=== PATIENT | female | born 1975 | race Caucasian/White ===

== ENCOUNTER → 2017-10-25 | Outpatient (CLI) | payer BC ==
--- NOTE | 2017-10-25 12:45 | WOMENS IMAGING REPORT ---
EXAM DESCRIPTION: BILAT SCREENING MAMMO W/CAD COMPLETED DATE/TIME: 10/25/2017 8:52 am REASON FOR STUDY: SCREENING MAMMO Z12.31 ENCNTR SCREEN MAMMOGRAM FOR MALIGNANT NEOPLASM OF KAUR COMPARISON: Baseline study TECHNIQUE: Standard craniocaudal and mediolateral oblique views of each breast recorded using digita l acquisition. LIMITATIONS: None. FINDINGS: RIGHT BREAST MASSES: Low-density well-circumscribed mammographic nodules are present in the upper outer quadrant, likely breast parenchymal cysts. There is also probable intramammary lymph node in the upper outer q uadrant. These findings require further evaluation with cone compression CC and MLO orientation mamm ograms and 90 mediolateral view. If they persist then ultrasound be required for followup. CALCIFICATIONS: No new or suspicious calcifications. ARCHITECTURAL DISTORTION: None. DEVELOPING DENSITY: None. ASYMMETRY: None noted. OTHER: No other significant findings. LEFT BREAST MASSES: Low-density well-circumscribed mammographic nodules in the upper outer quadrant left breast, likely cysts or intramammary lymph nodes. These findings require further evaluation with cone compre ssion CC and MLO orientation mammograms and 90 mediolateral view. The persist then ultrasound would be required for followup. CALCIFICATIONS: No new or suspicious calcifications. ARCHITECTURAL DISTORTION: None. DEVELOPING DENSITY: None. ASYMMETRY: None noted. OTHER: No other significant findings. Read with the assistance of CAD. .[facility] - R2 Cenova Version 1.3 .[facility] - R2 Cenova Version 1.3 .[facility] Imaging - R2 Cenova Version 2.4 .[facility] [place] - R2 Cenova Version 2.4 .[facility] - R2 Senior Teller Version 9.2 IMPRESSION: Mammographic findings bilaterally which require further evaluation with diagnostic mammo graphy and ultrasound. BREAST DENSITY: c. The breasts are heterogeneously dense, which may obscure small masses. BIRAD: 0 Incomplete: Needs Additional Imaging Evaluation and/or prior Mammograms for Comparison. RECOMMENDATION: RECOMMENDED FOLLOW-UP: Bilateral diagnostic mammograms and bilateral breast ultrasou nd The patient will be contacted for additional imaging. COMMENT: The patient has been notified of the results by letter per SA requirements. Additional no tification policies are in place for contacting patient with suspicious or incomplete findings. Quality ID #[id number]: The [employer] recommends an annual screening mammogram for women aged 40 years or over. This facility utilizes a reminder system to ensure that all patients receive reminder letters, and/or direct phone calls for appointments. This includes reminders for routine scr eening mammograms, diagnostic mammograms, or other Breast Imaging Interventions when appropriate. Th is patient will be placed in the appropriate reminder system. The [employer] (ACR) has developed recommendations for screening MRI of the breast s in certain patient populations, to be used in conjunction with mammography. Breast MRI surveillanc e may be appropriate for women with more than 20% lifetime risk of developing breast cancer as deter mined by genetic testing, significant family history of the disease, or history of mantle radiation f or Hodgkins Disease. ACR Practice Guidelines 2008. TECHNICAL DOCUMENTATION: FINDING NUMBER: (1) ASSESSMENT: (1) JOB ID: [id number] [employer]- All Rights Reserved Reading location - IP/workstation name: [facility]
== END ==
LOC: WI 08:38
PROVIDERS: ATTEND Family Medicine
DX: Z12.31 Encounter for screening mammogram for malignant neoplasm of breast (principal)
CPT/HCPCS: 77067

== ENCOUNTER → 2017-11-05 | Outpatient (CLI) | payer BC ==
--- NOTE | 2017-11-05 16:02 | WOMENS IMAGING REPORT ---
EXAM DESCRIPTION: BILAT DIAGNOSTIC MAMMO W/CAD; U/S BREAST UNILATERAL, COMPL COMPLETED DATE/TIME: 11/05/2017 11:01 am; 11/05/2017 12:05 pm REASON FOR STUDY: RIGHT BREAST LUMP; BREAST MASS N63.11 UNSPECIFIED LUMP IN THE RIGHT BREAST, UPPER OUTER DEE DEE N63.21 UNSPECIFIED LUMP IN THE LEFT BREAST, UPPER OUTER QUAD COMPARISON: Baseline screening exam 10/25/2017 TECHNIQUE: Cone compression craniocaudal and mediolateral oblique views of each breast recorded usin g digital acquisition. Bilateral whole breast 90 mediolateral views. Bilateral whole breast ultrasound was performed. LIMITATIONS: None. FINDINGS: RIGHT BREAST MASSES: Multiple small well-circumscribed low-density nodules are present in the right breast lateral ly. CALCIFICATIONS: No new or suspicious calcifications. ARCHITECTURAL DISTORTION: None. DEVELOPING DENSITY: None. ASYMMETRY: None noted. OTHER: No other significant findings. LEFT BREAST MASSES: Multiple small well-circumscribed low-density nodules are present in the left breast upper ruelas lf. CALCIFICATIONS: No new or suspicious calcifications. ARCHITECTURAL DISTORTION: None. DEVELOPING DENSITY: None. ASYMMETRY: None noted. OTHER: No other significant finding. Read with the assistance of CAD: .[facility] - R2 Cenova Version 1.3 .[facility] Imaging - R2 Cenova Version 1.3 .[facility] Imaging - R2 Cenova Version 2.4 .[facility] - R2 Cenova Version 2.4 .[facility] - R2 Packaging Assembler Version 9.2 Bilateral breast ultrasound: On the right side, there are multiple hypoechoic solid nodules which are well-circumscribed, and have good acoustic through transmission likely benign fibroadenomas. These are as follows: Right breast 1 to 2 o'clock position 9 x 6 mm Right breast 7 to 8 o'clock position 9 x 7 mm Right breast 9 o'clock position 7 x 5 mm Right breast 9 o'clock position 10 mm in diameter Right breast 9 o'clock position 5 mm in diameter On the left side, there are multiple hypoechoic solid nodules which are well-circumscribed and have g ood acoustic through transmission likely benign fibroadenomas. These are as follows: Left breast 12 o'clock position 7 x 4 mm Left breast 1 to 2 o'clock position 17 x 12 mm Left breast 9 o'clock position 10 x 7 mm Left breast 10 to 11 o'clock position 4 mm IMPRESSION: Multiple bilateral benign-appearing breast nodules with sonographic appearance of fibroa denomas. No mammographic or sonographic evidence for malignancy. BREAST DENSITY: c. The breasts are heterogeneously dense, which may obscure small masses. BIRAD: 2 Benign findings. RECOMMENDATION: RECOMMENDED FOLLOW UP: Please continue yearly bilateral screening mammography in Nov. Because of heterogeneously dense tissue please consider bilateral screening tomosynthesis. SPECIFIC INTERVENTION/IMAGING/CONSULTATION RECOMMENDED:No additional intervention/ imaging/consultati on needed at this time. COMMUNICATION:Patient notified by letter COMMENT: The patient has been notified of the results by letter per SA requirements. Additional no tification policies are in place for contacting patient with suspicious or incomplete findings. Quality ID #225: The [employer] recommends an annual screening mammogram for women aged 40 years or over. This facility utilizes a reminder system to ensure that all patients receive reminder letters, and/or direct phone calls for appointments. This includes reminders for routine scr eening mammograms, diagnostic mammograms, or other Breast Imaging Interventions when appropriate. Th is patient will be placed in the appropriate reminder system. The [employer] (ACR) has developed recommendations for screening MRI of the breast s in certain patient populations, to be used in conjunction with mammography. Breast MRI surveillanc e may be appropriate for women with more than 20% lifetime risk of developing breast cancer as deter mined by genetic testing, significant family history of the disease, or history of mantle radiation f or Hodgkins Disease. ACR Practice Guidelines 2008. TECHNICAL DOCUMENTATION: FINDING NUMBER: (1) ASSESSMENT: (1) JOB ID: [id number] [employer]- All Rights Reserved Reading location - IP/workstation name: [facility]
--- NOTE | 2017-11-05 16:02 | WOMENS IMAGING REPORT ---
EXAM DESCRIPTION: BILAT DIAGNOSTIC MAMMO W/CAD; U/S BREAST UNILATERAL, COMPL COMPLETED DATE/TIME: 11/05/2017 11:01 am; 11/05/2017 12:05 pm REASON FOR STUDY: RIGHT BREAST LUMP; BREAST MASS N63.11 UNSPECIFIED LUMP IN THE RIGHT BREAST, UPPER OUTER DEE DEE N63.21 UNSPECIFIED LUMP IN THE LEFT BREAST, UPPER OUTER QUAD COMPARISON: Baseline screening exam 10/25/2017 TECHNIQUE: Cone compression craniocaudal and mediolateral oblique views of each breast recorded usin g digital acquisition. Bilateral whole breast 90 mediolateral views. Bilateral whole breast ultrasound was performed. LIMITATIONS: None. FINDINGS: RIGHT BREAST MASSES: Multiple small well-circumscribed low-density nodules are present in the right breast lateral ly. CALCIFICATIONS: No new or suspicious calcifications. ARCHITECTURAL DISTORTION: None. DEVELOPING DENSITY: None. ASYMMETRY: None noted. OTHER: No other significant findings. LEFT BREAST MASSES: Multiple small well-circumscribed low-density nodules are present in the left breast upper ruelas lf. CALCIFICATIONS: No new or suspicious calcifications. ARCHITECTURAL DISTORTION: None. DEVELOPING DENSITY: None. ASYMMETRY: None noted. OTHER: No other significant finding. Read with the assistance of CAD: .[facility] - R2 Cenova Version 1.3 .[facility] Imaging - R2 Cenova Version 1.3 .[facility] Imaging - R2 Cenova Version 2.4 .[facility] - R2 Cenova Version 2.4 .[facility] - R2 Occupational Health Rn Version 9.2 Bilateral breast ultrasound: On the right side, there are multiple hypoechoic solid nodules which are well-circumscribed, and have good acoustic through transmission likely benign fibroadenomas. These are as follows: Right breast 1 to 2 o'clock position 9 x 6 mm Right breast 7 to 8 o'clock position 9 x 7 mm Right breast 9 o'clock position 7 x 5 mm Right breast 9 o'clock position 10 mm in diameter Right breast 9 o'clock position 5 mm in diameter On the left side, there are multiple hypoechoic solid nodules which are well-circumscribed and have g ood acoustic through transmission likely benign fibroadenomas. These are as follows: Left breast 12 o'clock position 7 x 4 mm Left breast 1 to 2 o'clock position 17 x 12 mm Left breast 9 o'clock position 10 x 7 mm Left breast 10 to 11 o'clock position 4 mm IMPRESSION: Multiple bilateral benign-appearing breast nodules with sonographic appearance of fibroa denomas. No mammographic or sonographic evidence for malignancy. BREAST DENSITY: c. The breasts are heterogeneously dense, which may obscure small masses. BIRAD: 2 Benign findings. RECOMMENDATION: RECOMMENDED FOLLOW UP: Please continue yearly bilateral screening mammography in Nov. Because of heterogeneously dense tissue please consider bilateral screening tomosynthesis. SPECIFIC INTERVENTION/IMAGING/CONSULTATION RECOMMENDED:No additional intervention/ imaging/consultati on needed at this time. COMMUNICATION:Patient notified by letter COMMENT: The patient has been notified of the results by letter per SA requirements. Additional no tification policies are in place for contacting patient with suspicious or incomplete findings. Quality ID #225: The [employer] recommends an annual screening mammogram for women aged 40 years or over. This facility utilizes a reminder system to ensure that all patients receive reminder letters, and/or direct phone calls for appointments. This includes reminders for routine scr eening mammograms, diagnostic mammograms, or other Breast Imaging Interventions when appropriate. Th is patient will be placed in the appropriate reminder system. The [employer] (ACR) has developed recommendations for screening MRI of the breast s in certain patient populations, to be used in conjunction with mammography. Breast MRI surveillanc e may be appropriate for women with more than 20% lifetime risk of developing breast cancer as deter mined by genetic testing, significant family history of the disease, or history of mantle radiation f or Hodgkins Disease. ACR Practice Guidelines 2008. TECHNICAL DOCUMENTATION: FINDING NUMBER: (1) ASSESSMENT: (1) JOB ID: [id number] [employer]- All Rights Reserved Reading location - IP/workstation name: [facility]
--- NOTE | 2017-11-05 16:02 | WOMENS IMAGING REPORT ---
EXAM DESCRIPTION: BILAT DIAGNOSTIC MAMMO W/CAD; U/S BREAST UNILATERAL, COMPL COMPLETED DATE/TIME: 11/05/2017 11:01 am; 11/05/2017 12:05 pm REASON FOR STUDY: RIGHT BREAST LUMP; BREAST MASS N63.11 UNSPECIFIED LUMP IN THE RIGHT BREAST, UPPER OUTER DEE DEE N63.21 UNSPECIFIED LUMP IN THE LEFT BREAST, UPPER OUTER QUAD COMPARISON: Baseline screening exam 10/25/2017 TECHNIQUE: Cone compression craniocaudal and mediolateral oblique views of each breast recorded usin g digital acquisition. Bilateral whole breast 90 mediolateral views. Bilateral whole breast ultrasound was performed. LIMITATIONS: None. FINDINGS: RIGHT BREAST MASSES: Multiple small well-circumscribed low-density nodules are present in the right breast lateral ly. CALCIFICATIONS: No new or suspicious calcifications. ARCHITECTURAL DISTORTION: None. DEVELOPING DENSITY: None. ASYMMETRY: None noted. OTHER: No other significant findings. LEFT BREAST MASSES: Multiple small well-circumscribed low-density nodules are present in the left breast upper ruelas lf. CALCIFICATIONS: No new or suspicious calcifications. ARCHITECTURAL DISTORTION: None. DEVELOPING DENSITY: None. ASYMMETRY: None noted. OTHER: No other significant finding. Read with the assistance of CAD: .[facility] - R2 Cenova Version 1.3 .[facility] Imaging - R2 Cenova Version 1.3 .[facility] Imaging - R2 Cenova Version 2.4 .[facility] [place] R2 Cenova Version 2.4 .[facility] - R2 Aerospace Project Manager Version 9.2 Bilateral breast ultrasound: On the right side, there are multiple hypoechoic solid nodules which are well-circumscribed, and have good acoustic through transmission likely benign fibroadenomas. These are as follows: Right breast 1 to 2 o'clock position 9 x 6 mm Right breast 7 to 8 o'clock position 9 x 7 mm Right breast 9 o'clock position 7 x 5 mm Right breast 9 o'clock position 10 mm in diameter Right breast 9 o'clock position 5 mm in diameter On the left side, there are multiple hypoechoic solid nodules which are well-circumscribed and have g ood acoustic through transmission likely benign fibroadenomas. These are as follows: Left breast 12 o'clock position 7 x 4 mm Left breast 1 to 2 o'clock position 17 x 12 mm Left breast 9 o'clock position 10 x 7 mm Left breast 10 to 11 o'clock position 4 mm IMPRESSION: Multiple bilateral benign-appearing breast nodules with sonographic appearance of fibroa denomas. No mammographic or sonographic evidence for malignancy. BREAST DENSITY: c. The breasts are heterogeneously dense, which may obscure small masses. BIRAD: 2 Benign findings. RECOMMENDATION: RECOMMENDED FOLLOW UP: Please continue yearly bilateral screening mammography in Nov. Because of heterogeneously dense tissue please consider bilateral screening tomosynthesis. SPECIFIC INTERVENTION/IMAGING/CONSULTATION RECOMMENDED:No additional intervention/ imaging/consultati on needed at this time. COMMUNICATION:Patient notified by letter COMMENT: The patient has been notified of the results by letter per SA requirements. Additional no tification policies are in place for contacting patient with suspicious or incomplete findings. Quality ID #225: The [employer] recommends an annual screening mammogram for women aged 40 years or over. This facility utilizes a reminder system to ensure that all patients receive reminder letters, and/or direct phone calls for appointments. This includes reminders for routine scr eening mammograms, diagnostic mammograms, or other Breast Imaging Interventions when appropriate. Th is patient will be placed in the appropriate reminder system. The [employer] (ACR) has developed recommendations for screening MRI of the breast s in certain patient populations, to be used in conjunction with mammography. Breast MRI surveillanc e may be appropriate for women with more than 20% lifetime risk of developing breast cancer as deter mined by genetic testing, significant family history of the disease, or history of mantle radiation f or Hodgkins Disease. ACR Practice Guidelines 2008. TECHNICAL DOCUMENTATION: FINDING NUMBER: (1) ASSESSMENT: (1) JOB ID: [id number] [employer]- All Rights Reserved Reading location - IP/workstation name: [email or web address]
== END ==
LOC: WI 10:21
PROVIDERS: ATTEND Family Medicine
DX: N63.11 Unspecified lump in the right breast, upper outer quadrant (principal); N63.21 Unspecified lump in the left breast, upper outer quadrant
CPT/HCPCS: 76641; 77066

== ENCOUNTER → 2018-11-01 | Outpatient (CLI) | payer BC ==
--- NOTE | 2018-11-01 16:48 | WOMENS IMAGING REPORT ---
EXAM DESCRIPTION: BILAT SCREENING MAMMO W/CAD COMPLETED DATE/TIME: 11/01/2018 11:02 am REASON FOR STUDY: Z12.31 ROUTINE BILATERAL SCREENING Z12.31 ENCNTR SCREEN MAMMOGRAM FOR MALIGNANT N EOPLASM OF KAUR COMPARISON: Bilateral mammograms 10/25/2017 EXAM PARAMETERS: Standard craniocaudal and mediolateral oblique views of each breast recorded using digital acquisition and breast tomosynthesis. Read with the assistance of CAD. .[facility] - [employer] Party Plan Demonstrator Version 9.2 LIMITATIONS: None. FINDINGS: Findings present which are benign by mammographic criteria. No suspicious masses, calcific ations or architectural distortion. Pertinent benign findings: Stable bilateral breast nodules Benign mammographic findings may include one or more of the following: Smooth masses, popcorn/rim/coa rse calcifications, asymmetries, post-procedure changes, and lesions with long-standing stability. IMPRESSION: Assessment: BENIGN MAMMOGRAPHIC FINDINGS. BIRADS 2 BREAST DENSITY: c. The breasts are heterogeneously dense, which may obscure small masses. BIRAD: 2 BENIGN FINDING(S) RECOMMENDATION: ROUTINE SCREENING Please continue yearly bilateral screening in October 2019. Please consider bilateral screening tomosynt hesis given heterogeneously dense fibroglandular tissue bilaterally COMMENT: The patient has been notified of the results by letter per MQSA requirements. Additional no tification policies are in place for contacting patient with suspicious or incomplete findings. Quality ID #[id number]: The [employer] recommends an annual screening mammogram for women aged 40 years or over. This facility utilizes a reminder system to ensure that all patients receive reminder letters, and/or direct phone calls for appointments. This includes reminders for routine scr eening mammograms, diagnostic mammograms, or other Breast Imaging Interventions when appropriate. Th is patient will be placed in the appropriate reminder system. TECHNICAL DOCUMENTATION: FINDING NUMBER: (1) ASSESSMENT: (1) JOB ID: [id number] [email or web address]- All Rights Reserved Reading location - IP/workstation name: [email or web address]
== END ==
LOC: WI 10:34
PROVIDERS: ATTEND Nurse Practitioner Family
DX: Z12.31 Encounter for screening mammogram for malignant neoplasm of breast (principal)
CPT/HCPCS: 77067